=== PATIENT | male | born 1965 | race Caucasian/White ===

== ENCOUNTER 2017-12-16 20:20 | Emergency (ER) | payer MEDICAID ==
[~2017-12-16] VITALS: Ht 180.3 cm; Wt 78.0 kg
[2017-12-16 23:03] VITALS: BP 121/74
[2017-12-16] MEDS ORDERED: HYDROcodone-ACET 10/325MG TAB PO ONE (23:15)
[2017-12-16] MEDS ORDERED: KETOROLAC TROMETH 60MG/2ML VIAL IM ONE (23:15)
== END 2017-12-17 00:50 | disposition home or self-care (01) ==
LOC: ER 20:20
DX: M25.511 Pain in right shoulder (principal); M54.5 Low back pain; K82.9 Disease of gallbladder, unspecified; K75.9 Inflammatory liver disease, unspecified; K74.60 Unspecified cirrhosis of liver; R16.1 Splenomegaly, not elsewhere classified; F17.210 Nicotine dependence, cigarettes, uncomplicated; V23.4XXA Motorcycle driver injured in collision with car, pick-up truck or van in traffic accident, initial encounter; Y93.89 Activity, other specified; Y99.8 Other external cause status; Y92.410 Unspecified street and highway as the place of occurrence of the external cause
CPT/HCPCS: 71111; 72070; 72100; 72125; 73000; 73030; 74176; 96372; 99284; J1885; 72110